=== PATIENT | male | born 1930 | race Caucasian/White ===

== ENCOUNTER → 2020-02-15 | Emergency (ER) | payer OTHER ==
[~2020-02-15] VITALS: Ht 170.2 cm; Wt 70.8 kg
[~2020-02-15] MED LIST: ALZ SR CAPLET1 EACH; AVAPRO150 MG; B COMPLEX1 EACH PO; CASODEX50 MG PO; CLONAZEPAM0.5 MG PO; DICLOFENAC SODI50 MG PO; FOLIC ACID 1 MG.; FOLIC ACID0.8 M1 PO; GLIMEPIRIDE2 MG; KEYTRUDA100 MG/4 M IV; LIPITOR 10 MG; LIPITOR80 MG PO; NAMENDA10 MG; PEMBROLIZUMAB; PEPCID 40 MG; PEPCID AC10 MG PO; PLAVIX75 MG; SYNTHROID50 MCG; VOLTAREN100 GM TOP; [UNRECOGNIZED DRUG - OTHER]; [UNRECOGNIZED DRUG - OTHER]; [UNRECOGNIZED DRUG - OTHER] PO
== END | disposition home or self-care (01) ==
LOC: ER 22:29
DX: G40.89 Other seizures (principal); R53.1 Weakness; R06.02 Shortness of breath; Z03.818 Encounter for observation for suspected exposure to other biological agents ruled out; Z74.01 Bed confinement status